=== PATIENT | male | born 2000 | race Caucasian/White ===

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

== ENCOUNTER 2024-06-29 10:29 | Emergency (ER) | payer BC ==
[~2024-06-29] VITALS: Ht 177.8 cm; Wt 120.1 kg
[2024-06-29] MEDS ORDERED: MORGIDOX 1X100100 MG PO (11:11)
[2024-06-29 11:50] VITALS: BP 121/92
== END 2024-06-29 12:09 | disposition home or self-care (01) ==
LOC: ED 10:29
DX: L03.115 Cellulitis of right lower limb (principal); L02.411 Cutaneous abscess of right axilla; L73.1 Pseudofolliculitis barbae
CPT/HCPCS: J0696